=== PATIENT | female | born 1980 | race Caucasian/White ===

== ENCOUNTER 2018-11-29 12:36 | Emergency (ER) | payer BC ==
[~2018-11-29] VITALS: Ht 167.6 cm; Wt 129.1 kg
[~2018-11-29 12:36] MED LIST: /FEXO18TA; ACET500C; ACET500T2; ALBU17IN2; ALLEGRA PO; ALLEGRA180 PO; ALTA10CA; BABY81CH; CALC600T57 PO; CORE12.5; CYMB1CAP5; CYMBALTA30 PO; DARVOCET-N PO; EFFEXORXL7 PO; FLON0.05; FLONASE NASAL SPRAY; FLONASESPR NASAL; FURO20TA2; GLUC500T; IBUP600T; LEVAQUI500 PO; LOESTRIN; METFORM500 PO; NAPROS500 PO; PROZAC20 PO; SERT-138 PO; SPIR25TA2; VICODIN PO; ZYRTEC10 PO
[2018-11-29] MEDS ORDERED: ZOLO100T PO (13:21)
[2018-11-29] MEDS ORDERED: CARV12.5 PO (13:21)
[2018-11-29] MEDS ORDERED: RAMI1CAP21 PO (13:21)
[2018-11-29 13:27] LABS: BASO # 0.1 10^3/uL (0.0-0.2); BASO % 0.6 % (0.0-1.0); EOS # 0.1 10^3/uL (0.0-0.50); EOS % 1.5 % (0.0-3.0); HEMATOCRIT 40.8 % (36.0-47.0); HEMOGLOBIN 13.7 g/dl (12.0-15.5); LYMPH # 1.9 10^3/uL (1.5-4.5); LYMPH % 22.6 % (24.0-44.0); MEAN CORPUSCULAR HEMOGLOBIN 29.3 pg (27.0-33.0); MEAN CORPUSCULAR HGB CONC 33.6 g/dl (32.0-36.5); MEAN CORPUSCULAR VOLUME 87.4 fl (80.0-96.0); MONO # 0.4 10^3/uL (0.0-0.8); MONO % 5.3 % (0.0-5.0); NEUTROPHILS # 5.7 10^3/uL (1.8-7.7); NEUTROPHILS % 69.6 % (36.0-66.0); PLATELET COUNT, AUTOMATED 179 10^3/uL (150-450); RED BLOOD COUNT 4.67 10^6/uL (4.00-5.40); WHITE BLOOD COUNT 8.2 10^3/uL (4.0-10.0)
[2018-11-29 13:32] LABS: INR 0.93; PROTHROMBIN TIME 12.6 SECONDS (12.1-14.4)
[2018-11-29 13:34] LABS: D-DIMER QUANT 1586.45 ng/ml (<500)
[2018-11-29 13:40] LABS: HCG, SERUM QUALITATIVE NEGATIVE (NEGATIVE)
[2018-11-29 13:46] LABS: ALBUMIN 3.8 GM/DL (3.2-5.2); ALT/SGPT 42 U/L (12-78); BILIRUBIN,DIRECT 0.2 MG/DL (0.0-0.2); BLOOD UREA NITROGEN 15 MG/DL (7-18); CARBON DIOXIDE LEVEL 28 MEQ/L (21-32); CHLORIDE LEVEL 104 MEQ/L (98-107); CPK CREATINE PHOSPHOKINASE 89 U/L (26-192); CREATININE FOR GFR 0.79 MG/DL (0.55-1.30); GLOMERULAR FILTRATION RATE > 60.0 (>60); GLUCOSE, FASTING 94 MG/DL (70-100); MB/CK RELATIVE INDEX 5.96 (< OR =4); NT-PRO BNP 84 PG/ML (<125); POTASSIUM SERUM 4.2 MEQ/L (3.5-5.1); SODIUM LEVEL 139 MEQ/L (136-145); THYROXINE (T4) 10.1 UG/DL (4.5-12.0); TOTAL PROTEIN 7.4 GM/DL (6.4-8.2); TROPONIN I < 0.02 NG/ML (< 0.10)
--- NOTE | 2018-11-29 14:03 | REP ---
Chest two views HISTORY: Cough Comparison: None The lungs are clear. The heart is normal in size. The pulmonary vasculature is normal in appearance. The bony structure is intact. IMPRESSION: No acute disease. Electronically Signed by Tanmay Curtis MD 11/29/2018 01:55 P
[2018-11-29] MEDS ORDERED: ISOVUE-370 76% 100ML VIAL (Q9967) As Ordered ONE (14:23)
[2018-11-29 14:49] LABS: INFLUENZA A AMPLIFICATION NEGATIVE (NEGATIVE); INFLUENZA B AMPLIFICATION NEGATIVE (NEGATIVE)
--- NOTE | 2018-11-29 15:27 | REP ---
CT ANGIO CHEST: HISTORY: Shortness of breath. CONTRAST: Isovue 370, 75 mL. The examination is limited. There are no definite filling defects in the main, right and left pulmonary arteries or their branches. The lungs are clear. There is no pleural effusion. The heart is normal in size. There is no aneurysm. There is no mediastinal mass. Minimal degenerative change is present in the thoracic spine. The patient is status post cholecystectomy. IMPRESSION: Limited examination demonstrating no definite pulmonary embolism. Electronically Signed by Tanmay Curtis MD 11/29/2018 03:29 P
--- NOTE | 2018-11-29 17:49 | ECGEPIP ---
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
--- NOTE | 2018-11-29 18:03 | REPVR ---
EXAM: US Duplex Bilateral Lower Extremity Veins EXAM DATE/TIME: 11/29/2018 5:24 PM CLINICAL HISTORY: 38 years old, female; Signs and symptoms; Other: Shortness of breath TECHNIQUE: Imaging protocol: Real-time duplex ultrasound of the Bilateral Lower Extremities with 2-D pinto scale, color Doppler flow and spectral waveform analysis. Complete exam focused on the bilateral lower extremity veins. COMPARISON: No relevant prior studies available. FINDINGS: Right deep veins: Unremarkable. The common femoral, femoral, proximal profunda femoral and popliteal veins are patent without thrombus. Normal Doppler waveforms. Normal compressibility and/or augmentation response. Right superficial veins: Saphenofemoral junction is patent without thrombus. Left deep veins: Unremarkable. The common femoral, femoral, proximal profunda femoral and popliteal veins are patent without thrombus. Normal Doppler waveforms. Normal compressibility and/or augmentation response. Left superficial veins: Saphenofemoral junction is patent without thrombus. Soft tissues: Unremarkable. IMPRESSION: No acute findings. No evidence of deep vein thrombosis. Electronically signed by: Cal Ji On 11/29/2018 18:03:36 PM
[2018-11-29 18:36] LABS: CPK CREATINE PHOSPHOKINASE 67 U/L (26-192); MB/CK RELATIVE INDEX 6.72 (< OR =4); TROPONIN I < 0.02 NG/ML (< 0.10)
[2018-11-29] MEDS ORDERED: ADULKIT XX (18:58)
[2018-11-29 19:05] VITALS: BP 165/98
--- NOTE | 2018-12-01 07:35 | ECGEPIP ---
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
== END 2018-11-29 19:31 | disposition home or self-care (01) ==
LOC: M ED 12:36
DX: I11.0 Hypertensive heart disease with heart failure (principal); I42.9 Cardiomyopathy, unspecified; I50.9 Heart failure, unspecified; F33.9 Major depressive disorder, recurrent, unspecified; Z79.899 Other long term (current) drug therapy; Z79.82 Long term (current) use of aspirin; Z87.891 Personal history of nicotine dependence
CPT/HCPCS: 36415; 71046; 71275; 80048; 80076; 82550; 82553; 83880; 84436; 84443; 84484; 84703; 85025; 85379; 85610; 87502; 93005; 93041; 93970; 94760; 99285; Q9967

== ENCOUNTER → 2018-12-27 | Outpatient (REF) | payer BC ==
[~2018-12-27] MED LIST changes: +ADULKIT XX; +CARV12.5 PO; +RAMI1CAP21 PO; +ZOLO100T PO
== END ==
LOC: M SFHCLERA 18:38
PROVIDERS: ATTEND Nurse Practitioner Family
DX: R30.0 Dysuria (principal)

== ENCOUNTER → 2019-09-18 | Outpatient (REF) | payer BC ==
[2019-09-18 12:22] LABS: ALBUMIN 3.5 GM/DL (3.2-5.2); ALT/SGPT 42 U/L (12-78); BILIRUBIN,TOTAL 0.6 MG/DL (0.2-1.0); BLOOD UREA NITROGEN 18 MG/DL (7-18); CALCIUM LEVEL 8.8 MG/DL (8.5-10.1); CARBON DIOXIDE LEVEL 31 MEQ/L (21-32); CHLORIDE LEVEL 103 MEQ/L (98-107); CHOLESTEROL LEVEL 188 MG/DL (<200); CHOLESTEROL RISK RATIO 4.272 (<5); CREATININE FOR GFR 0.86 MG/DL (0.55-1.30); GLOMERULAR FILTRATION RATE > 60.0 (>60); GLUCOSE, FASTING 107 MG/DL (70-100); HDL CHOLESTEROL 44 MG/DL (>40); LDL CHOLESTEROL 103 MG/DL (<100); NON-HDL-C 144 MG/DL; POTASSIUM SERUM 4.2 MEQ/L (3.5-5.1); SODIUM LEVEL 140 MEQ/L (136-145); TRIGLYCERIDES LEVEL 204 MG/DL (<150)
== END ==
LOC: M LABDRAWC 11:09
DX: I11.9 Hypertensive heart disease without heart failure (principal); E78.1 Pure hyperglyceridemia

== ENCOUNTER → 2020-11-04 | Outpatient (CLI) | payer OTHER ==
[2020-11-04 17:12] LABS: BLOOD UREA NITROGEN 19 MG/DL (7-18); CALCIUM LEVEL 9.5 MG/DL (8.5-10.1); CARBON DIOXIDE LEVEL 29 MEQ/L (21-32); CHLORIDE LEVEL 104 MEQ/L (98-107); CREATININE FOR GFR 0.83 MG/DL (0.55-1.30); GLOMERULAR FILTRATION RATE > 60.0 (>60); GLUCOSE, FASTING 91 MG/DL (70-100); POTASSIUM SERUM 4.2 MEQ/L (3.5-5.1); SODIUM LEVEL 139 MEQ/L (136-145)
== END ==
LOC: M LAB 15:28
PROVIDERS: ATTEND Physician Assistant
DX: I11.9 Hypertensive heart disease without heart failure (principal); I42.0 Dilated cardiomyopathy

== ENCOUNTER 2021-02-02 21:22 | Emergency (ER) | payer OTHER ==
[~2021-02-02] VITALS: Ht 167.6 cm; Wt 132.6 kg
[2021-02-03 01:18] VITALS: BP 136/94
[2021-02-03 02:31] LABS: URINE PREG TEST NEGATIVE (NEGATIVE)
--- NOTE | 2021-02-03 03:07 | REPVR ---
PROCEDURE INFORMATION: Exam: US Nonobstetric Pelvis; Complete Exam date and time: 02/03/2021 1:13 AM Age: 40 years old Clinical indication: Pelvic pain; Additional info: Pelvic pain, pressure (has iud) concern for prolapse TECHNIQUE: Imaging protocol: Transabdominal pelvic nonobstetric ultrasound. Complete exam. Real time ultrasound with image documentation. COMPARISON: US Duplex, Ext LOWER veins, bilat 11/29/2018 5:08 PM FINDINGS: Uterus/cervix: The uterus measures 10.3 x 4.0 x 4.8 cm. Endometrium is heterogeneous measuring 7 mm. No endometrial mass. The IUD appears to be in the endometrium in the fundus. Provided images. Suboptimally demonstrate the IUD however. Right adnexa: Ovary is normal. No mass. Normal blood flow. No hydrosalpinx. Left adnexa: 3.0 cm cyst in the ovary. No hydrosalpinx. No mass. Normal blood flow. Intraperitoneal space: No intraperitoneal fluid. IMPRESSION: 1. IUD appears to be in the fundal endometrium but is suboptimally imaged. 2. Nonspecific heterogeneous appearance of the endometrium in the lower uterine segment. No uterine or endometrial mass. 3. Small cyst in the left ovary. Electronically signed by: Naun Porter On 02/03/2021 03:07:18 AM
--- NOTE | 2021-02-03 03:09 | REPVR ---
PROCEDURE INFORMATION: Exam: XR Abdomen Exam date and time: 02/03/2021 1:45 AM Age: 40 years old Clinical indication: Other: Pelvic pain. Iud placement; Additional info: Pelvic pain, iud placement TECHNIQUE: Imaging protocol: XR of the abdomen. Views: Frontal supine view of the abdomen. 1 View. COMPARISON: CR Chest, 2 view PA, Lat 11/29/2018 1:50 PM FINDINGS: Gastrointestinal tract: No organomegaly, mass effect, or free air. No bowel dilation. Organs: There is an IUD in the pelvis just to the right of midline projecting over the uterus. Bones/joints: Unremarkable. IMPRESSION: IUD in the pelvis just to the right of midline. Electronically signed by: Naun Porter On 02/03/2021 03:09:01 AM
== END 2021-02-03 02:28 | disposition home or self-care (01) ==
LOC: M ED 21:22
DX: N83.202 Unspecified ovarian cyst, left side (principal); R10.2 Pelvic and perineal pain; T83.32XA Displacement of intrauterine contraceptive device, initial encounter; Z79.82 Long term (current) use of aspirin; Z79.899 Other long term (current) drug therapy

== ENCOUNTER → 2021-04-19 | Outpatient (REF) | payer OTHER | LOC: M SFHCWAGY 17:16 | PROVIDERS: ATTEND Obstetrics & Gynecology | DX: R30.0 Dysuria (principal) ==

== ENCOUNTER → 2021-04-24 | Outpatient (REF) | payer OTHER | LOC: M SFHCWAGY 19:11 | PROVIDERS: ATTEND Obstetrics & Gynecology | DX: R87.810 Cervical high risk human papillomavirus (HPV) DNA test positive (principal) | CPT/HCPCS: 87624; G0123 ==

== ENCOUNTER → 2021-05-04 | Outpatient (CLI) | payer OTHER | LOC: M PLALAB 08:00 | PROVIDERS: ATTEND Obstetrics & Gynecology | DX: R30.0 Dysuria (principal) ==

== ENCOUNTER → 2021-05-04 | Outpatient (CLI) | payer OTHER ==
[2021-05-04 11:38] LABS: ALT/SGPT 41 U/L (12-78); BILIRUBIN,TOTAL 0.9 MG/DL (0.2-1.0); BLOOD UREA NITROGEN 23 MG/DL (7-18); CALCIUM LEVEL 8.8 MG/DL (8.5-10.1); CARBON DIOXIDE LEVEL 30 MEQ/L (21-32); CHLORIDE LEVEL 103 MEQ/L (98-107); CHOLESTEROL LEVEL 194 MG/DL (<200); CREATININE FOR GFR 0.97 MG/DL (0.55-1.30); GLOMERULAR FILTRATION RATE > 60.0 (>58); GLUCOSE, FASTING 107 MG/DL (70-100); HDL CHOLESTEROL 46 MG/DL (>40); POTASSIUM SERUM 4.3 MEQ/L (3.5-5.1); SODIUM LEVEL 136 MEQ/L (136-145); TRIGLYCERIDES LEVEL 216 MG/DL (<150)
[2021-05-04 11:39] LABS: ALBUMIN 3.7 GM/DL (3.2-5.2); CHOLESTEROL RISK RATIO 4.217 (<5); LDL CHOLESTEROL 105 MG/DL (<100); NON-HDL-C 148 MG/DL; TOTAL PROTEIN 7.4 GM/DL (6.4-8.2)
== END ==
LOC: M PLALAB 08:02
PROVIDERS: ATTEND Physician Assistant
DX: I11.9 Hypertensive heart disease without heart failure (principal); Z71.3 Dietary counseling and surveillance; I42.0 Dilated cardiomyopathy; E78.1 Pure hyperglyceridemia

== ENCOUNTER → 2021-05-23 | Outpatient (REF) | payer OTHER | LOC: M SFHCWAGY 17:07 | PROVIDERS: ATTEND Obstetrics & Gynecology | DX: R87.612 Low grade squamous intraepithelial lesion on cytologic smear of cervix (LGSIL) (principal) ==

== ENCOUNTER → 2021-05-26 | Outpatient (CLI) | payer OTHER ==
--- NOTE | 2021-05-26 16:06 | REPMRS ---
Patient History The patient states she had a clinical breast exam in April 2021. Taking hormonal contraceptives for 3 years. Patient states no breast complaints today. Patient has signed MRS History Sheet. Digital Woman Screen Mammo: May 26, 2021 - Exam #: [id number] Bilateral CC and MLO view(s) were taken. Technologist: Renetta Echevarria Technologist FINDINGS: The breast tissue is almost entirely fat. Screening. Digital screening (2D) mammography was performed bilaterally. Additionally, breast tomosynthesis (3D) mammography was perfomed bilaterally in the CC and MLO projections. Today's examination is the initial screening examination. By history, the patient has no complaints of a palpable breast abnormality or other significant breast complaints. The breasts are symmetric in size and shape.Benign appearing calcifications are seen. There are no masses. There is no internal architectural distortion. There are no suspicious microcalcific clusters. Skin thickening or nipple retraction is not present. IMPRESSION: BI-RADS Category 2- Benign Findings. There is no evidence of malignant alteration of the breasts. Followup examination recommended in one year. The Volpara volumetric breast density category is A, the breasts are almost entirely fatty. This mammogram was read with the assistance of Epoxy,an FDA approved computer aided detection system for mammography. The lifetime Tyrer-Cuzick score is 9.5 % Negative x-ray reports should not delay surgical consultation if a dominant or clinically suspicious mass is present. Not all breast cancers can be identified by mammography. Therefore, we recommend that you continue to perform regular breast self-examination and physical examination and then promptly contact your physician of any concerns or changes. Adenosis and dense breasts may obscure an underlying neoplasm. Assessment: BI-RADS/ACR category 2 mammogram. Benign Findings. Recommendation Routine screening mammogram of both breasts in 1 year. Electronically Signed By: Stuart Espinoza DO 05/26/21 1720
== END ==
LOC: M WHC 15:15
PROVIDERS: ATTEND Obstetrics & Gynecology
DX: Z12.31 Encounter for screening mammogram for malignant neoplasm of breast (principal); R92.1 Mammographic calcification found on diagnostic imaging of breast

== ENCOUNTER → 2021-11-24 | Outpatient (CLI) | payer OTHER ==
[2021-11-24 09:13] LABS: ALBUMIN 3.7 GM/DL (3.2-5.2); ALT/SGPT 39 U/L (12-78); BILIRUBIN,TOTAL 0.9 MG/DL (0.2-1.0); BLOOD UREA NITROGEN 16 MG/DL (7-18); CALCIUM LEVEL 9.6 MG/DL (8.5-10.1); CARBON DIOXIDE LEVEL 28 MEQ/L (21-32); CHLORIDE LEVEL 105 MEQ/L (98-107); CHOLESTEROL LEVEL 223 MG/DL (<200); CHOLESTEROL RISK RATIO 4.288 (<5); CREATININE FOR GFR 0.88 MG/DL (0.55-1.30); GLOMERULAR FILTRATION RATE > 60.0 (>58); GLUCOSE, FASTING 118 MG/DL (70-100); HDL CHOLESTEROL 52 MG/DL (>40); LDL CHOLESTEROL 125 MG/DL (<100); NON-HDL-C 171 MG/DL; POTASSIUM SERUM 4.3 MEQ/L (3.5-5.1); SODIUM LEVEL 139 MEQ/L (136-145); TOTAL PROTEIN 7.5 GM/DL (6.4-8.2); TRIGLYCERIDES LEVEL 231 MG/DL (<150)
== END ==
LOC: M LAB 08:14
PROVIDERS: ATTEND Physician Assistant
DX: I11.9 Hypertensive heart disease without heart failure (principal); I42.0 Dilated cardiomyopathy; E78.1 Pure hyperglyceridemia; Z71.3 Dietary counseling and surveillance

== ENCOUNTER → 2022-10-09 | Outpatient (CLI) | payer BC ==
[2022-10-09 14:26] LABS: BLOOD UREA NITROGEN 15 MG/DL (9-23); CALCIUM LEVEL 9.4 MG/DL (8.5-10.1); CARBON DIOXIDE LEVEL 30 MMOL/L (20-31); CHLORIDE LEVEL 103 MMOL/L (98-107); CREATININE FOR GFR 0.86 MG/DL (0.55-1.30); GLOMERULAR FILTRATION RATE > 60.0 (>58); GLUCOSE, FASTING 97 MG/DL (60-100); POTASSIUM SERUM 4.5 MMOL/L (3.5-5.1); SODIUM LEVEL 139 MMOL/L (136-145)
== END ==
LOC: M PLALAB 10:55
PROVIDERS: ATTEND Physician Assistant
DX: Z12.4 Encounter for screening for malignant neoplasm of cervix (principal); R87.610 Atypical squamous cells of undetermined significance on cytologic smear of cervix (ASC-US); I11.9 Hypertensive heart disease without heart failure
CPT/HCPCS: 36415; 80048; 87624; G0123

== ENCOUNTER → 2022-11-22 | Outpatient (REF) | payer BC | LOC: M SFHCWAGY 17:55 | PROVIDERS: ATTEND Obstetrics & Gynecology | DX: R87.612 Low grade squamous intraepithelial lesion on cytologic smear of cervix (LGSIL) (principal) ==

== ENCOUNTER → 2023-03-03 | Outpatient (REF) | payer BC | LOC: M LAB REF 18:38 | PROVIDERS: ATTEND Physician Assistant | DX: Z11.9 Encounter for screening for infectious and parasitic diseases, unspecified (principal); W57.XXXA Bitten or stung by nonvenomous insect and other nonvenomous arthropods, initial encounter ==

== ENCOUNTER → 2023-11-06 | Outpatient (CLI) | payer BC ==
[2023-11-06 14:54] LABS: BLOOD UREA NITROGEN 18 MG/DL (9-23); CALCIUM LEVEL 9.3 MG/DL (8.5-10.1); CARBON DIOXIDE LEVEL 30 MMOL/L (20-31); CHLORIDE LEVEL 106 MMOL/L (98-107); CREATININE FOR GFR 0.82 MG/DL (0.55-1.30); GLOMERULAR FILTRATION RATE > 60.0 (>58); GLUCOSE, FASTING 103 MG/DL (60-100); POTASSIUM SERUM 4.6 MMOL/L (3.5-5.1); SODIUM LEVEL 141 MMOL/L (136-145)
== END ==
LOC: M PLALAB 09:27
PROVIDERS: ATTEND Physician Assistant
DX: I50.32 Chronic diastolic (congestive) heart failure (principal)

== ENCOUNTER 2023-12-31 15:59 | Emergency (ER) | payer BC ==
[~2023-12-31] VITALS: Ht 167.6 cm; Wt 122.8 kg
[~2023-12-31 15:59] MED LIST changes: +RAMI1.258 PO; -RAMI1CAP21 PO
[2023-12-31 16:00] VITALS: BP 139/91; TEMP 97.6; O2SAT 95
[2023-12-31] MEDS ORDERED: TENS1TAB2 PO (16:23)
[2023-12-31] MEDS ORDERED: IBUP-1022 PO (20:20)
[2023-12-31] MEDS ORDERED: CYCL-707 PO (20:20)
[2023-12-31] MEDS: IBUPROFEN 600MG TAB PO ONE (20:27)
[2023-12-31] MEDS: CYCLOBENZAPRINE 10MG TABLET PO ONE (20:28)
== END 2023-12-31 20:34 | disposition home or self-care (01) ==
LOC: M ED 15:59
DX: M54.16 Radiculopathy, lumbar region (principal); I10 Essential (primary) hypertension; Z79.82 Long term (current) use of aspirin; Z79.899 Other long term (current) drug therapy

== ENCOUNTER → 2024-06-02 | Outpatient (REF) | payer BC ==
[~2024-06-02] MED LIST changes: +CYCL-707 PO; +IBUP-1022 PO; +TENS1TAB2 PO
[2024-06-02 17:23] LABS: ALBUMIN 3.6 G/DL (3.2-5.2); ALKALINE PHOSPHATASE 61 U/L (35-104); ALT/SGPT 26 U/L (7.0-40); AST/SGOT 23 U/L (<34); BILIRUBIN,TOTAL 0.9 MG/DL (0.3-1.2); BLOOD UREA NITROGEN 20 MG/DL (9-23); CALCIUM LEVEL 9.5 MG/DL (8.5-10.1); CARBON DIOXIDE LEVEL 31 MMOL/L (20-31); CHLORIDE LEVEL 104 MMOL/L (98-107); CHOLESTEROL LEVEL 197 MG/DL (<200); CHOLESTEROL RISK RATIO 3.95 (<5); CREATININE FOR GFR 0.77 MG/DL (0.55-1.30); GLOMERULAR FILTRATION RATE > 60.0 (>58); GLUCOSE, FASTING 110 MG/DL (60-100); HDL CHOLESTEROL 49.8 MG/DL (>40); LDL CHOLESTEROL 118.6 MG/DL (<100); NON-HDL-C 147.2 MG/DL; POTASSIUM SERUM 4.4 MMOL/L (3.5-5.1); SODIUM LEVEL 138 MMOL/L (136-145); TOTAL PROTEIN 7.6 G/DL (5.7-8.2); TRIGLYCERIDES LEVEL 143 MG/DL (<150)
== END ==
LOC: M LABDRAWC 16:18
PROVIDERS: ATTEND Physician Assistant
DX: I50.32 Chronic diastolic (congestive) heart failure (principal); I42.0 Dilated cardiomyopathy; E78.1 Pure hyperglyceridemia; Z13.220 Encounter for screening for lipoid disorders

== ENCOUNTER → 2024-06-02 | Outpatient (REF) | payer BC ==
[2024-06-02 17:18] LABS: HEMATOCRIT 40.3 % (36.0-47.0); HEMOGLOBIN 13.1 g/dl (12.0-15.5); MEAN CORPUSCULAR HGB CONC 32.5 g/dl (32.0-36.5); MEAN CORPUSCULAR VOLUME 89.4 fl (80.0-96.0); PLATELET COUNT, AUTOMATED 150 10^3/uL (150-450); RED BLOOD COUNT 4.51 10^6/uL (4.00-5.40); WHITE BLOOD COUNT 8.5 10^3/uL (4.0-10.0)
[2024-06-02 17:25] LABS: FREE T4 1.17 NG/DL (0.89-1.76); THYROID STIMULATING HORMONE 1.093 uIU/ML (0.55-4.78)
[2024-06-02 17:48] LABS: RSV AMPLIFICATION NEGATIVE (NEGATIVE)
[2024-06-02 18:02] LABS: HEMOGLOBIN A1c 5.3 % (4.0-6.0)
== END ==
LOC: M SFHCCLAY 10:57
PROVIDERS: ATTEND Family Medicine
DX: J06.9 Acute upper respiratory infection, unspecified (principal)

== ENCOUNTER 2024-11-09 08:40 | Emergency (ER) | payer OTHER ==
[~2024-11-09] VITALS: Ht 167.6 cm; Wt 135.1 kg
[2024-11-09] MEDS ORDERED: MAGN250T7 PO (09:05)
[2024-11-09] MEDS ORDERED: LORA-1041 PO (09:05)
[2024-11-09] MEDS: GABAPENTIN 300 MG CAP PO ONE (10:09)
[2024-11-09] MEDS ORDERED: GABA-1172 PO (16:58)
[2024-11-09] MEDS: KETOROLAC 60MG 2ML VIAL IM ONE (17:11)
[2024-11-09 17:53] VITALS: BP 148/87; TEMP 97.7; O2SAT 98
== END 2024-11-09 17:54 | disposition home or self-care (01) ==
LOC: M ED 08:40
DX: M54.41 Lumbago with sciatica, right side (principal); M43.16 Spondylolisthesis, lumbar region; M48.061 Spinal stenosis, lumbar region without neurogenic claudication; M46.97 Unspecified inflammatory spondylopathy, lumbosacral region; M51.370 Other intervertebral disc degeneration, lumbosacral region with discogenic back pain only; I11.0 Hypertensive heart disease with heart failure; I50.9 Heart failure, unspecified; G43.909 Migraine, unspecified, not intractable, without status migrainosus; Z79.899 Other long term (current) drug therapy; Z79.82 Long term (current) use of aspirin
CPT/HCPCS: 72131; 72148; 96372; 99283; J1885

== ENCOUNTER → 2024-12-14 | Outpatient (REF) | payer OTHER ==
[~2024-12-14] MED LIST changes: +GABA-1172 PO; +LORA-1041 PO; +MAGN250T7 PO
[2024-12-16 16:52] LABS: HPV APTIMA Detected (Not Detected)
== END ==
LOC: M SFHCWAGY 17:32
PROVIDERS: ATTEND Obstetrics & Gynecology
DX: Z12.4 Encounter for screening for malignant neoplasm of cervix (principal)

== ENCOUNTER → 2025-03-17 | Outpatient (REF) | payer OTHER | LOC: M SFHCWAGY 13:08 | PROVIDERS: ATTEND Obstetrics & Gynecology | DX: R87.612 Low grade squamous intraepithelial lesion on cytologic smear of cervix (LGSIL) (principal) ==

== ENCOUNTER → 2025-06-18 | Outpatient (REF) | payer OTHER ==
[~2025-06-18] MED LIST changes: -IBUP-1022 PO; +IBUP600T42 PO
[2025-06-18 15:33] LABS: ALT/SGPT 28.0 U/L (7.0-40); AST/SGOT 33.0 U/L (<34); CALCIUM LEVEL 8.6 MG/DL (8.5-10.1); CARBON DIOXIDE LEVEL 30.0 MMOL/L (20-31); CHLORIDE LEVEL 102.0 MMOL/L (98-107); CHOLESTEROL LEVEL 158.0 MG/DL (<200); CHOLESTEROL RISK RATIO 3.56 (<5); CREATININE FOR GFR 0.88 MG/DL (0.55-1.30); GLOMERULAR FILTRATION RATE 83.1 (>58); LDL CHOLESTEROL 78.5 MG/DL (<100); NON-HDL-C 113.7 MG/DL; POTASSIUM SERUM 4.6 MMOL/L (3.5-5.1); SODIUM LEVEL 140.0 MMOL/L (136-145); TRIGLYCERIDES LEVEL 176.0 MG/DL (<150)
== END ==
LOC: M LABDRAWC 14:27
PROVIDERS: ATTEND Physician Assistant
DX: I50.32 Chronic diastolic (congestive) heart failure (principal); E78.1 Pure hyperglyceridemia; Z13.220 Encounter for screening for lipoid disorders; F32.9 Major depressive disorder, single episode, unspecified; G43.109 Migraine with aura, not intractable, without status migrainosus; R73.01 Impaired fasting glucose

== ENCOUNTER → 2025-06-18 | Outpatient (REF) | payer OTHER ==
[2025-06-18 14:35] LABS: ALT/SGPT 29.0 U/L (7.0-40); AST/SGOT 33.0 U/L (<34); CALCIUM LEVEL 8.5 MG/DL (8.5-10.1); CARBON DIOXIDE LEVEL 31.0 MMOL/L (20-31); CHLORIDE LEVEL 102.0 MMOL/L (98-107); CHOLESTEROL LEVEL 158.0 MG/DL (<200); CHOLESTEROL RISK RATIO 3.62 (<5); CREATININE FOR GFR 0.88 MG/DL (0.55-1.30); GLOMERULAR FILTRATION RATE 83.1 (>58); LDL CHOLESTEROL 79.6 MG/DL (<100); NON-HDL-C 114.4 MG/DL; POTASSIUM SERUM 4.5 MMOL/L (3.5-5.1); SODIUM LEVEL 140.0 MMOL/L (136-145); TRIGLYCERIDES LEVEL 174.0 MG/DL (<150)
[2025-06-18 15:38] LABS: ESTIMATED AVERAGE GLUCOSE 114.0 MG/DL (60-110)
== END ==
LOC: M SFHCCLAY 07:30
PROVIDERS: ATTEND Physician Assistant
DX: F32.9 Major depressive disorder, single episode, unspecified (principal); G43.109 Migraine with aura, not intractable, without status migrainosus; R73.01 Impaired fasting glucose